=== PATIENT | male | born 1945 | race Caucasian/White ===

== ENCOUNTER 2017-08-01 18:29 | Emergency (ER) | payer MEDICARE, MEDICAID ==
[~2017-08-01] VITALS: Ht 177.8 cm; Wt 99.8 kg
[~2017-08-01 18:29] MED LIST: CAPT25TA3 PO; GLIM2TAB2 PO; HYDR-4076 PO; LORA1TAB PO; MAGN500T3 PO; MECL-102 PO; NIFE30TA91 PO; OLME1TAB22 PO; RIVA20TA PO; TAMS0.4C34 PO
[2017-08-01 19:08] LABS: *BILIRUBIN,URIN NEGATIVE (NEGATIVE); *COLOR,URINE RED (YELLOW); *KETONES,URINE NEGATIVE (NEGATIVE); *PROTEIN,URINE 2+ (NEGATIVE); *UROBILINOGEN,URINE 0.2 E.U./dl (NORMAL); LEUKOCYTE ESTERASE ,URINE NEGATIVE (NEGATIVE); NITRITE, URINE NEGATIVE (NEGATIVE); PH,URINE 6.5 (5.0-8.0); UGLUCOSE NEGATIVE (NEGATIVE)
[2017-08-01 19:15] LABS: *BLOOD, URINE 4+ (NEGATIVE); *CLARITY,URINE BLOODY (CLEAR)
[2017-08-01 19:16] LABS: RBC,URINE TNTC /HPF (0-3)
--- NOTE | 2017-08-01 19:29 | NUR ---
Pt ambulated to room with steady gait. Pt is on Xarelto and c/o hematuria since 1800 but sts it has improved since. Dr. Morton at bedside for MSE
[2017-08-01 19:44] LABS: BASOPHILS % (AUTO) 0.3 % (0.0-2.0); EOSINOPHILS # (AUTO) 0.1 K/uL (0.0-0.7); EOSINOPHILS % (AUTO) 0.9 % (0.0-7.0); HEMATOCRIT 40.8 % (36.7-47.1); HEMOGLOBIN 13.9 g/dL (12.5-16.3); LYMPHOCYTES % (AUTO) 13.7 % (20.5-51.5); MEAN CORPUSCULAR HEMOGLOBIN 30.8 uug (23.8-33.4); MEAN CORPUSCULAR HGB CONC 34 g/dL (32.5-36.3); MEAN CORPUSCULAR VOLUME 90.3 fL (73.0-96.2); MONOCYTES # (AUTO) 0.5 K/uL (2.0-10.0); MONOCYTES % (AUTO) 6.3 % (0.0-11.0); NEUTROPHILS # (AUTO) 5.9 K/uL (1.8-8.9); NEUTROPHILS % (AUTO) 78.8 % (38.5-71.5); PLATELET COUNT (AUTO) 215 K/uL (152-348); RED BLOOD CELL COUNT(AUTO) 4.52 MIL/uL (4.06-5.63); WHITE BLOOD COUNT (AUTO) 7.5 K/uL (3.6-10.2)
[2017-08-01] MEDS ORDERED: LIDOCAINE 2% (UROJET) 10 ML JELLY MM ONE ×2 (19:45→20:20)
[2017-08-01 19:46] LABS: CARBON DIOXIDE 30 mmol/L (21-32); CHLORIDE 103 mmol/L (98-107); CREATININE 1.7 mg/dL (0.6-1.3); GLUCOSE 177 mg/dL (74-106); POTASSIUM 3.7 mmol/L (3.5-5.1); UREA NITROGEN, BLOOD 27 mg/dL (7-18)
[2017-08-01 19:52] LABS: ALANINE AMINOTRANSFERASE 32 U/L (16-63); ALKALINE PHOSPHATASE 57 U/L (50-136); ASPARTATE AMINOTRANSFERASE 20 U/L (15-37); BILIRUBIN,TOTAL 0.5 mg/dL (0.2-1.0)
--- NOTE | 2017-08-01 21:22 | NUR ---
CBI INFUSION WITHOUT ANY NOTED COMPLICATIONS. OUTPUT INCREASINGLY BECOMING CLEARER WITH SCANT CLOTTING NOTED.
--- NOTE | 2017-08-01 22:15 | NUR ---
Patient discharged to home in stable conditon. Written and verbal after care instructions given. Patient verbalizes understanding of instructions.
[2017-08-01 22:50] VITALS: BP 161/83
== END 2017-08-01 22:20 | disposition home or self-care (01) ==
LOC: ER 18:29
DX: R31.0 Gross hematuria (principal); I10 Essential (primary) hypertension; E11.9 Type 2 diabetes mellitus without complications; I48.91 Unspecified atrial fibrillation; E78.5 Hyperlipidemia, unspecified
CPT/HCPCS: 36415; 51702; 85025; 85610; A4217; A4663; J7030

== ENCOUNTER 2022-07-17 11:50 | Inpatient (IN) | payer MEDICARE, OTHER ==
[~2022-07-17] VITALS: Ht 162.6 cm; Wt 104.3 kg
[~2022-07-17 11:50] MED LIST changes: -GLIM2TAB2 PO; +GLIM2TAB31 PO; -HYDR-4076 PO; +HYDR-894 PO; -MECL-102 PO; +MECL-159 PO
[2022-07-17] MEDS ORDERED: VANCOMYCIN IV 1,000 MG in IV DEXTROSE 5% 250 ML IV ONE (12:15)
[2022-07-17] MEDS ORDERED: PIPERACILLIN SODIUM/TAZOBACTAM 3.375 G in IV DEXTROSE 5% 50 ML IV ONE (12:15)
[2022-07-17] MEDS ORDERED: PIPERACILLIN/TAZOBACTAM/D5W 50 ML IV ONE (12:19)
[2022-07-17] MEDS ORDERED: VANCOMYCIN IV 200 ML ONE ×2 (12:19→23:49)
[2022-07-17] MEDS ORDERED: GLIP10TA11 PO (12:24)
[2022-07-17] MEDS ORDERED: APIX2.5T PO (12:24)
[2022-07-17] MEDS ORDERED: NEBI10TA2 PO (12:24)
[2022-07-17] MEDS ORDERED: DAPA5TAB PO (12:24)
[2022-07-17] MEDS ORDERED: MV-M1TAB18 PO (12:24)
[2022-07-17] MEDS ORDERED: DOXA4TAB3 PO (12:24)
[2022-07-17] MEDS ORDERED: CEPH500C2 PO (12:24)
[2022-07-17] MEDS ORDERED: [UNRECOGNIZED DRUG - OTHER] PO (12:24)
--- NOTE | 2022-07-17 12:36 | NUR ---
PT IS IN ROOM #2A. DR CALDERON EVALUATED THE PT.
[2022-07-17 13:17] LABS: CARBON DIOXIDE 30 mmol/L (21-32); CHLORIDE 106 mmol/L (98-107); CREATININE 1.3 mg/dL (0.6-1.3); GLUCOSE 172 mg/dL (74-106); POTASSIUM 4.2 mmol/L (3.5-5.1); UREA NITROGEN, BLOOD 25 mg/dL (7-18)
[2022-07-17 13:22] LABS: ALANINE AMINOTRANSFERASE 59 U/L (16-63); ALKALINE PHOSPHATASE 63 U/L (50-136); ASPARTATE AMINOTRANSFERASE 22 U/L (15-37); BILIRUBIN,DIRECT 0.2 mg/dL (0.0-0.2); BILIRUBIN,TOTAL 0.5 mg/dL (0.2-1.0); TOTAL PROTEIN, SERUM 6.8 g/dL (6.4-8.2)
[2022-07-17 13:31] LABS: HEMATOCRIT 38.1 % (36.7-47.1); MEAN CORPUSCULAR HEMOGLOBIN 32.9 uug (23.8-33.4); MEAN CORPUSCULAR VOLUME 98.2 fL (73.0-96.2); PLATELET COUNT (AUTO) 196 K/uL (152-348)
--- NOTE | 2022-07-17 14:07 | NUR ---
Dr Newman spoke to Dr Perkins for admission.
[2022-07-17] MEDS: glipiZIDE 10 MG TABLET PO SCH (17:00)
[2022-07-17] MEDS ORDERED: DOXAZOSIN 2 MG TABLET ONE (17:20)
[2022-07-17] MEDS ORDERED: hydrALAZINE HCL 50 MG TABLET ONE (17:21)
[2022-07-17] MEDS: DOXAZOSIN 2 MG TABLET PO SCH (17:24)
[2022-07-17] MEDS: hydrALAZINE HCL 50 MG TABLET PO SCH (17:24)
--- NOTE | 2022-07-17 19:34 | NUR ---
Endorsed to Donna RN RM # [id number], will transfer patient now.
[2022-07-17 20:00] VITALS: BP 138/71
[2022-07-17] MEDS ORDERED: TEMAZEPAM 15 MG CAPSULE PO PRN (20:30)
[2022-07-17] MEDS ORDERED: ONDANSETRON 4 MG/2 ML VIAL IV PRN (20:30)
[2022-07-17] MEDS ORDERED: ACETAMINOPHEN 325 MG TABLET PO PRN (20:30)
[2022-07-17] MEDS ORDERED: HYDROCODONE/APAP 5-325MG TABLET PO PRN (20:30)
[2022-07-17] MEDS ORDERED: PIPERACILLIN/TAZOBACTAM/D5W 100 ML IV ONE (20:41)
[2022-07-17] MEDS: PIPERACILLIN SODIUM/TAZOBACTAM 3.375 G in IV DEXTROSE 5% 50 ML IV SCH (21:24)
[2022-07-17] MEDS: APIXABAN 2.5 MG TABLET PO SCH (21:25)
[2022-07-17] MEDS: IV 1/2NS 1000 ML 1,000 ML IV PRN (21:51)
[2022-07-18 04:00] VITALS: BP 125/74
[2022-07-18] MEDS: PIPERACILLIN SODIUM/TAZOBACTAM 3.375 G in IV DEXTROSE 5% 50 ML IV SCH ×4 (05:45→23:20)
[2022-07-18] MEDS: PANTOPRAZOLE SODIUM 40 MG TABLET.DR PO SCH ×2 (06:19→07:00)
[2022-07-18 07:00] LABS: HEMATOCRIT 42.9 % (36.7-47.1); MEAN CORPUSCULAR HEMOGLOBIN 32.6 uug (23.8-33.4); MEAN CORPUSCULAR VOLUME 98.7 fL (73.0-96.2); PLATELET COUNT (AUTO) 225 K/uL (152-348)
[2022-07-18] MEDS ORDERED: VANCOMYCIN IV 1,000 MG in IV DEXTROSE 5% 250 ML IV SCH (07:00)
[2022-07-18 07:26] LABS: THYROID STIMULATING HORMONE 2.108 mIU/mL (0.358-3.740)
[2022-07-18 07:53] LABS: CARBON DIOXIDE 33 mmol/L (21-32); CHLORIDE 102 mmol/L (98-107); CHOLESTEROL 143 mg/dL (<200); CREATININE 1.6 mg/dL (0.6-1.3); GLUCOSE 109 mg/dL (74-106); HDL CHOLESTEROL 45 mg/dL (40-60); MAGNESIUM 2.1 mg/dL (1.8-2.4); PHOSPHOROUS 4.4 mg/dL (2.5-4.9); POTASSIUM 4.1 mmol/L (3.5-5.1); TRIGLYCERIDES 74 MG/DL (30-150); UREA NITROGEN, BLOOD 20 mg/dL (7-18)
[2022-07-18] MEDS: glipiZIDE 10 MG TABLET PO SCH ×2 (10:13→17:34)
[2022-07-18] MEDS: DOXAZOSIN 2 MG TABLET PO SCH ×3 (10:13→17:35)
[2022-07-18] MEDS: hydrALAZINE HCL 50 MG TABLET PO SCH ×2 (10:14→17:00)
[2022-07-18] MEDS: APIXABAN 2.5 MG TABLET PO SCH ×2 (10:20→20:36)
[2022-07-18 11:38] VITALS: BP 134/80
--- NOTE | 2022-07-18 11:59 | NUR ---
WOUND CARE CONSULT: PT PRESENTS WITH OPEN WOUND WITH SURROUNDING ERYTHEMA TO RT LOWER LEG, PRESENT ON ADMISSION. DR BUSH CALLED FOR DPM CONSULT. PT USING HIS OWN MUPIRICIN OINTMENT THAT HE RECEIVED FROM HIS QUARTER FOLDER WITH STERILE BANDAGE. PT IS INDEPENDENT WITH BED MOBILITY AND CONTINENT. MD IN AGREEMENT WITH PLAN OF CARE.
[2022-07-18] MEDS ORDERED: FINE10TA PO (12:55)
[2022-07-18] MEDS ORDERED: AMLO2.5T4 PO (15:43)
[2022-07-18] MEDS ORDERED: OMEP1CAP25 PO (15:43)
[2022-07-18] MEDS ORDERED: EVOL140P3 SQ (15:43)
[2022-07-18] MEDS ORDERED: ALBU8.5H8 INH (15:43)
[2022-07-18] MEDS ORDERED: CHOL400C8 PO (15:43)
[2022-07-18] MEDS ORDERED: MONT10TA33 PO (15:43)
[2022-07-18] MEDS ORDERED: ICOS1CAP PO (15:43)
[2022-07-18] MEDS ORDERED: INSU100I4 SQ (15:43)
[2022-07-18] MEDS ORDERED: LORA-259 PO (15:43)
[2022-07-18] MEDS ORDERED: HYDR-4077 PO (15:43)
[2022-07-18] MEDS ORDERED: SEMA1PEN SQ (15:43)
[2022-07-18] MEDS ORDERED: LATA5DRO EACHEYE (15:43)
[2022-07-18] MEDS ORDERED: SOLI10TA2 PO (15:43)
[2022-07-18] MEDS ORDERED: AZEL137S7 BNOSTRILS (15:45)
[2022-07-18 16:28] VITALS: BP 128/80
[2022-07-18] MEDS: IV 1/2NS 1000 ML 1,000 ML IV PRN (17:34)
[2022-07-18] MEDS: MUPIROCIN 2% OINT 22 GM TUBE TP SCH ×2 (20:34→20:59)
[2022-07-18 21:21] VITALS: BP 126/73
[2022-07-19 00:36] VITALS: BP 145/92
[2022-07-19 05:49] VITALS: BP 145/87
--- NOTE | 2022-07-19 06:00 | NUR ---
PT RESTED WELL IN BETWEEN CARE; NO ACUTE DISTRESS; WOUND CARE DONE PER MD; NEEDS ATTENDED; WILL ENDORSE TO GET ACCUCHECK ORDERS; CONTINUE TO MONITOR; CONTINUE PLAN OF CARE.
[2022-07-19] MEDS: PIPERACILLIN SODIUM/TAZOBACTAM 3.375 G in IV DEXTROSE 5% 50 ML IV SCH ×2 (06:04→13:54)
[2022-07-19] MEDS: PANTOPRAZOLE SODIUM 40 MG TABLET.DR PO SCH (06:04)
[2022-07-19 06:37] LABS: HEMATOCRIT 39.2 % (36.7-47.1); MEAN CORPUSCULAR HEMOGLOBIN 32.4 uug (23.8-33.4); MEAN CORPUSCULAR VOLUME 98.1 fL (73.0-96.2); PLATELET COUNT (AUTO) 211 K/uL (152-348)
[2022-07-19 07:02] LABS: CARBON DIOXIDE 31 mmol/L (21-32); CHLORIDE 105 mmol/L (98-107); CREATININE 1.6 mg/dL (0.6-1.3); GLUCOSE 145 mg/dL (74-106); MAGNESIUM 2.1 mg/dL (1.8-2.4); PHOSPHOROUS 4.2 mg/dL (2.5-4.9); POTASSIUM 3.9 mmol/L (3.5-5.1); UREA NITROGEN, BLOOD 18 mg/dL (7-18)
[2022-07-19] MEDS: glipiZIDE 10 MG TABLET PO SCH ×2 (08:59→17:30)
[2022-07-19] MEDS: APIXABAN 2.5 MG TABLET PO SCH ×2 (08:59→20:31)
[2022-07-19] MEDS: DOXAZOSIN 2 MG TABLET PO SCH ×5 (09:00→17:37)
[2022-07-19] MEDS: hydrALAZINE HCL 50 MG TABLET PO SCH ×3 (09:00→17:00)
[2022-07-19] MEDS ORDERED: MUPIROCIN 2% OINT 22 GM TUBE TP SCH (09:00)
[2022-07-19] MEDS: VANCOMYCIN IV 1,500 MG in IV DEXTROSE 5% 500 ML IV SCH (10:13)
[2022-07-19] MEDS: MUPIROCIN 2% OINT 22 GM TUBE TP SCH ×2 (12:41→20:31)
[2022-07-19 13:00] VITALS: BP 125/68
[2022-07-19] MEDS ORDERED: DEXTROSE 50% 50 ML DISP.SYRIN IV PRN (17:45)
[2022-07-19] MEDS: CEFEPIME HCL 1 G in IV DEXTROSE 5% 50 ML IV SCH (20:30)
[2022-07-19] MEDS: INSULIN REGULAR, HUMAN 300 UNIT/3 ML VIAL SQ PRN (20:43)
[2022-07-19] MEDS: BLOOD SUGAR DIAGNOSTIC 1 EACH STRIP VI SCH (20:43)
[2022-07-19 21:24] VITALS: BP 127/70
[2022-07-20 00:13] VITALS: BP 122/73
[2022-07-20] MEDS: IV 1/2NS 1000 ML 1,000 ML IV PRN (04:14)
[2022-07-20 05:00] VITALS: BP 132/70
[2022-07-20] MEDS: BLOOD SUGAR DIAGNOSTIC 1 EACH STRIP VI SCH ×3 (05:50→16:48)
[2022-07-20] MEDS: PANTOPRAZOLE SODIUM 40 MG TABLET.DR PO SCH (05:50)
[2022-07-20 07:54] LABS: HEMATOCRIT 41.3 % (36.7-47.1); MEAN CORPUSCULAR HEMOGLOBIN 32.5 uug (23.8-33.4); MEAN CORPUSCULAR VOLUME 97.8 fL (73.0-96.2); PLATELET COUNT (AUTO) 227 K/uL (152-348)
[2022-07-20 08:07] LABS: ALANINE AMINOTRANSFERASE 32 U/L (16-63); ALKALINE PHOSPHATASE 58 U/L (50-136); ASPARTATE AMINOTRANSFERASE 11 U/L (15-37); BILIRUBIN,TOTAL 0.5 mg/dL (0.2-1.0); CARBON DIOXIDE 30 mmol/L (21-32); CHLORIDE 104 mmol/L (98-107); CREATINE KINASE, TOTAL 53 U/L (39-308); CREATININE 1.6 mg/dL (0.6-1.3); GLUCOSE 148 mg/dL (74-106); MAGNESIUM 2.2 mg/dL (1.8-2.4); PHOSPHOROUS 3.6 mg/dL (2.5-4.9); POTASSIUM 4.1 mmol/L (3.5-5.1); UREA NITROGEN, BLOOD 19 mg/dL (7-18)
[2022-07-20] MEDS: hydrALAZINE HCL 50 MG TABLET PO SCH ×3 (09:00→17:00)
[2022-07-20] MEDS: APIXABAN 2.5 MG TABLET PO SCH (09:08)
[2022-07-20] MEDS: glipiZIDE 10 MG TABLET PO SCH ×2 (09:11→17:10)
[2022-07-20] MEDS: MUPIROCIN 2% OINT 22 GM TUBE TP SCH (09:13)
[2022-07-20] MEDS: CEFEPIME HCL 1 G in IV DEXTROSE 5% 50 ML IV SCH (09:14)
[2022-07-20 11:43] VITALS: BP 124/78
[2022-07-20] MEDS: DOXAZOSIN 2 MG TABLET PO SCH ×2 (13:17→17:15)
[2022-07-20] MEDS ORDERED: DOXY100T2 PO (15:00)
[2022-07-20] MEDS: VANCOMYCIN IV 1,500 MG in IV DEXTROSE 5% 500 ML IV SCH ×2 (16:00→16:22)
[2022-07-20] MEDS: INSULIN REGULAR, HUMAN 300 UNIT/3 ML VIAL SQ PRN (16:49)
[2022-07-20] MEDS ORDERED: DOXYCYCLINE HYCLATE 100 MG TABLET PO ONE (17:00)
--- NOTE | 2022-07-20 17:00 | NUR ---
Pt. discharged home and picked up with his . Noted to be stable up on the discharge. IV lines removed. Personal belonging returned to the patient.
[2022-07-20 17:15] VITALS: BP 137/75
[2022-07-23 12:07] LABS: A/G RATIO 0.8 (0.7-1.7); ALBUMIN 2.9 g/dL (2.9-4.4); ALPHA-1-GLOBULIN 0.3 g/dL (0.0-0.4); ALPHA-2-GLOBULIN 0.8 g/dL (0.4-1.0); BETA GLOBULIN 0.9 g/dL (0.7-1.3); GAMMA GLOBULIN 1.5 g/dL (0.4-1.8); GLOBULIN, TOTAL 3.5 g/dL (2.2-3.9); M-SPIKE 1.2 g/dL (Not Observed)
== END 2022-07-20 17:30 | disposition home or self-care (01) | DRG 570 ==
LOC: ER 11:50 → TELE3 19:38
PROVIDERS: ADMIT Nurse Practitioner Family; ATTEND Nurse Practitioner Family
PROC: 0JBN0ZZ Excision of Right Lower Leg Subcutaneous Tissue and Fascia, Open Approach (ICD-10-PCS; principal; 2022-07-18)
DX: L03.115 Cellulitis of right lower limb (principal); N17.0 Acute kidney failure with tubular necrosis; E44.1 Mild protein-calorie malnutrition; E66.9 Obesity, unspecified; E78.5 Hyperlipidemia, unspecified; E88.09 Other disorders of plasma-protein metabolism, not elsewhere classified; G89.29 Other chronic pain; I48.91 Unspecified atrial fibrillation; Z79.01 Long term (current) use of anticoagulants; Z79.84 Long term (current) use of oral hypoglycemic drugs; Z20.822 Contact with and (suspected) exposure to COVID-19; Z68.39 Body mass index [BMI] 39.0-39.9, adult; S80.861A Insect bite (nonvenomous), right lower leg, initial encounter; W57.XXXA Bitten or stung by nonvenomous insect and other nonvenomous arthropods, initial encounter; Y93.9 Activity, unspecified; Y92.009 Unspecified place in unspecified non-institutional (private) residence as the place of occurrence of the external cause; I12.9 Hypertensive chronic kidney disease with stage 1 through stage 4 chronic kidney disease, or unspecified chronic kidney disease; N18.9 Chronic kidney disease, unspecified; E11.22 Type 2 diabetes mellitus with diabetic chronic kidney disease
CPT/HCPCS: 36415; 71045; 73590; 83605; 83735; 83970; 84100; 84155; 84165; 84443; 84484; 85025; 85730; 87040; 93005; A4663; G0378; J0692; J1815; J2543; J3370; J7050; J7060

== ENCOUNTER 2024-11-04 08:15 | Inpatient (IN) | payer MEDICARE, OTHER ==
[~2024-11-04] VITALS: Ht 167.6 cm; Wt 118.4 kg
[~2024-11-04 08:15] MED LIST changes: +ALBU8.5H8 INH; +AMLO2.5T4 PO; +APIX2.5T PO; +AZEL137S7 BNOSTRILS; -CAPT25TA3 PO; +CEPH500C2 PO; +CHOL400C8 PO; +DAPA5TAB PO; +DOXA4TAB3 PO; +DOXY100T2 PO; +EVOL140P3 SQ; +FINE10TA PO; -GLIM2TAB31 PO; +GLIP10TA11 PO; +HYDR-4077 PO; -HYDR-894 PO; +ICOS1CAP PO; +INSU100I4 SQ; +LATA5DRO EACHEYE; +LORA-259 PO; -LORA1TAB PO; -MAGN500T3 PO; -MECL-159 PO; +MONT10TA33 PO; +NEBI10TA2 PO; -NIFE30TA91 PO; -OLME1TAB22 PO; +OMEP1CAP25 PO; -RIVA20TA PO; +SEMA1PEN SQ; +SOLI10TA2 PO; -TAMS0.4C34 PO
[2024-11-04 09:12] LABS: BASOPHILS % (AUTO) 0.5 % (0.0-2.0); EOSINOPHILS # (AUTO) 0.1 K/uL (0.0-0.7); EOSINOPHILS % (AUTO) 2.5 % (0.0-7.0); HEMATOCRIT 33.5 % (36.7-47.1); LYMPHOCYTES # (AUTO) 1.1 K/uL (0.8-4.8); LYMPHOCYTES % (AUTO) 21.2 % (20.5-51.5); MEAN CORPUSCULAR HEMOGLOBIN 30.3 uug (23.8-33.4); MEAN CORPUSCULAR HGB CONC 33 g/dL (32.5-36.3); MEAN CORPUSCULAR VOLUME 92.6 fL (73.0-96.2); MONOCYTES # (AUTO) 0.5 K/uL (0.1-1.30); MONOCYTES % (AUTO) 8.8 % (0.0-11.0); NEUTROPHILS # (AUTO) 3.4 K/uL (1.8-8.9); PLATELET COUNT (AUTO) 207 K/uL (152-348); RED BLOOD CELL COUNT(AUTO) 3.62 MIL/uL (4.06-5.63); RED CELL DISTRIBUTION WIDTH 20.3 % (12.1-16.2); WHITE BLOOD COUNT (AUTO) 5.1 K/uL (3.6-10.2)
[2024-11-04 09:13] LABS: DIFFERENTIAL COMMENT 1
[2024-11-04 09:18] LABS: CALCIUM 9.1 mg/dL (8.5-10.1); CARBON DIOXIDE 31 mmol/L (21-32); CHLORIDE 111 mmol/L (98-107); CREATININE 1.7 mg/dL (0.6-1.3); GLUCOSE 215 mg/dL (74-106); POTASSIUM 3.9 mmol/L (3.5-5.1); SODIUM SERUM 148 mmol/L (136-145); UREA NITROGEN, BLOOD 47 mg/dL (7-18)
[2024-11-04 09:21] LABS: *BILIRUBIN,URIN NEGATIVE (NEGATIVE); *BLOOD, URINE NEGATIVE (NEGATIVE); *CLARITY,URINE CLEAR (CLEAR); *COLOR,URINE YELLOW (YELLOW); *KETONES,URINE TRACE (NEGATIVE); *PROTEIN,URINE 1+ (NEGATIVE); *UROBILINOGEN,URINE 0.2 E.U./dl (NORMAL); LEUKOCYTE ESTERASE ,URINE NEGATIVE (NEGATIVE); NITRITE, URINE NEGATIVE (NEGATIVE); PH,URINE 5.5 (5.0-8.0); UGLUCOSE 1+ (NEGATIVE)
[2024-11-04 09:28] LABS: LACTIC ACID 2.4 mmol/L (0.4-2.0)
[2024-11-04 09:30] LABS: WBC,URINE 0-3 /HPF (0-3)
[2024-11-04 09:31] LABS: ALANINE AMINOTRANSFERASE 25 U/L (16-63); ALBUMIN 2.9 g/dL (3.4-5.0); ALKALINE PHOSPHATASE 48 U/L (50-136); ASPARTATE AMINOTRANSFERASE 15 U/L (15-37); BILIRUBIN,DIRECT 0.2 mg/dL (0.0-0.2); BILIRUBIN,TOTAL 0.4 mg/dL (0.2-1.0); NT-PRO BNP 2338 pg/mL (0-125); TOTAL PROTEIN, SERUM 6.5 g/dL (6.4-8.2)
[2024-11-04 10:08] LABS: ABG BASE EXCESS 0.2 mmol/L (-2.0-3.0); ABG HCO3 26.4 mmol/L (21.0-28.0); ABG PH 7.341 (7.350-7.450); ABG PO2 97.8 mmHg (83.0-108.0); ABG SITE RIGHT RADIAL; ABG TOTAL HEMOGLOBIN 11.5 G/dL (13.5-17.5); COHb 0.7 % (0.5-1.5); MetHb 0.3 % (0.0-1.5); O2Hb 94.6 % (94.0-98.0)
[2024-11-04] MEDS ORDERED: FUROSEMIDE 40 MG/4 ML VIAL ONE (11:46)
[2024-11-04] MEDS: FUROSEMIDE 40 MG/4 ML VIAL IV ONE (11:51)
[2024-11-04] MEDS ORDERED: ONDANSETRON 4 MG/2 ML VIAL IV PRN (12:45)
[2024-11-04] MEDS ORDERED: LORAZEPAM 2 MG/1 ML VIAL IV PRN (12:45)
[2024-11-04] MEDS ORDERED: ACETAMINOPHEN 325 MG TABLET PO PRN (12:45)
[2024-11-04] MEDS ORDERED: DEXTROSE 50% 50 ML DISP.SYRIN IV PRN (12:45)
[2024-11-04] MEDS ORDERED: INSULIN REGULAR, HUMAN 1000 UNIT/10 ML VIAL ONE (12:57)
[2024-11-04] MEDS: INSULIN REGULAR, HUMAN 1000 UNIT/10 ML VIAL SQ ONE (13:00)
[2024-11-04] MEDS ORDERED: GLIM4TAB37 PO (13:29)
[2024-11-04] MEDS ORDERED: DAPA10TA PO (13:30)
[2024-11-04] MEDS: levETIRAcetam IV 1,000 MG in IV DEXTROSE 5% 100 ML IV SCH (13:31)
[2024-11-04] MEDS ORDERED: ROPI2TAB26 PO (15:35)
[2024-11-04] MEDS ORDERED: GABA300C PO (15:36)
[2024-11-04] MEDS ORDERED: POTA10CA43 PO (15:36)
[2024-11-04] MEDS ORDERED: FINA5TAB3 PO (15:37)
[2024-11-04] MEDS ORDERED: FURO20TA4 PO (15:38)
[2024-11-04] MEDS ORDERED: MEMA14CA PO (15:39)
[2024-11-04] MEDS ORDERED: LEVE750T4 PO (15:41)
[2024-11-04] MEDS ORDERED: CLON2TAB PO (15:42)
[2024-11-04] MEDS ORDERED: CHOL500062 PO (15:45)
[2024-11-04] MEDS ORDERED: ALBUTEROL SULFATE 2.5 MG/3 ML NEBU NEB PRN (17:00)
[2024-11-04] MEDS: BLOOD SUGAR DIAGNOSTIC 1 EACH STRIP VI SCH (17:04)
[2024-11-04] MEDS: MEMANTINE HCL 5 MG TABLET PO SCH (17:15)
[2024-11-04] MEDS: DOXAZOSIN 2 MG TABLET PO SCH (17:15)
[2024-11-04] MEDS: GABAPENTIN 300 MG CAPSULE PO SCH (17:15)
[2024-11-04] MEDS: APIXABAN 2.5 MG TABLET PO SCH (17:16)
[2024-11-04 19:00] VITALS: BP 131/73; TEMP 97.6; O2SAT 99
[2024-11-04] MEDS: METOPROLOL TARTRATE 50 MG TABLET PO SCH (21:13)
[2024-11-04] MEDS: INSULIN REGULAR, HUMAN 1000 UNIT/10 ML VIAL SQ PRN (21:14)
[2024-11-05] VITALS (9 sets, daily range): BP systolic 97–133; BP diastolic 52–74; TEMP 97.5–98.5; O2SAT 94–99
[2024-11-05 06:40] LABS: BASOPHILS % (AUTO) 0.5 % (0.0-2.0); EOSINOPHILS # (AUTO) 0.1 K/uL (0.0-0.7); EOSINOPHILS % (AUTO) 2.8 % (0.0-7.0); HEMATOCRIT 34.1 % (36.7-47.1); HEMOGLOBIN 11.2 g/dL (12.5-16.3); LYMPHOCYTES # (AUTO) 1.2 K/uL (0.8-4.8); LYMPHOCYTES % (AUTO) 23.1 % (20.5-51.5); MEAN CORPUSCULAR HEMOGLOBIN 30.2 uug (23.8-33.4); MEAN CORPUSCULAR HGB CONC 33 g/dL (32.5-36.3); MONOCYTES # (AUTO) 0.4 K/uL (0.1-1.30); MONOCYTES % (AUTO) 7.2 % (0.0-11.0); NEUTROPHILS # (AUTO) 3.5 K/uL (1.8-8.9); NEUTROPHILS % (AUTO) 66.4 % (38.5-71.5); PLATELET COUNT (AUTO) 219 K/uL (152-348); RED BLOOD CELL COUNT(AUTO) 3.71 MIL/uL (4.06-5.63); WHITE BLOOD COUNT (AUTO) 5.3 K/uL (3.6-10.2)
[2024-11-05] MEDS: PANTOPRAZOLE SODIUM 40 MG TABLET.DR PO SCH (06:41)
[2024-11-05 06:59] LABS: DIFFERENTIAL COMMENT 1
[2024-11-05 07:13] LABS: THYROID STIMULATING HORMONE 1.993 mIU/mL (0.358-3.740)
[2024-11-05 07:25] LABS: CALCIUM 9.1 mg/dL (8.5-10.1); CARBON DIOXIDE 33 mmol/L (21-32); CHLORIDE 111 mmol/L (98-107); CREATININE 1.5 mg/dL (0.6-1.3); GLUCOSE 95 mg/dL (74-106); MAGNESIUM 2.1 mg/dL (1.8-2.4); PHOSPHOROUS 4.3 mg/dL (2.5-4.9); POTASSIUM 3.8 mmol/L (3.5-5.1); SODIUM SERUM 149 mmol/L (136-145); UREA NITROGEN, BLOOD 37 mg/dL (7-18)
[2024-11-05] MEDS: CHOLECALCIFEROL 1,000 UNIT TABLET PO SCH (08:37)
[2024-11-05] MEDS: ropiniROLE 1 MG TABLET PO SCH (08:37)
[2024-11-05] MEDS: FINASTERIDE 5 MG TABLET PO SCH (08:38)
[2024-11-05] MEDS ORDERED: Medication Not On Formulary EA (Memantine HCl (Namenda Xr) 14 MG) PO SCH (09:00)
[2024-11-05] MEDS ORDERED: Medication Not On Formulary EA (Cholecalciferol (Vitamin D3) (Vitamin D3) 1 TAB) PO SCH (09:00)
[2024-11-05] MEDS ORDERED: FINERENONE 10 MG PO SCH (09:00)
[2024-11-05] MEDS: ACETAzolamide SODIUM 500 MG VIAL IV ONE (10:57)
[2024-11-05] MEDS: MIRALAX 17 GM POWD.PACK PO SCH (12:48)
[2024-11-05] MEDS: SENNOSIDES 1 TABLET PO SCH (20:13)
[2024-11-05] MEDS: TRAZODONE 50 MG TABLET PO SCH (20:14)
[2024-11-05] MEDS: FUROSEMIDE 40 MG/4 ML VIAL IV SCH (20:14)
[2024-11-05 20:43] LABS: FERRITIN < 1 ng/mL (26-388)
[2024-11-05 20:49] LABS: CHOLESTEROL < 50 mg/dL (<200); TRIGLYCERIDES < 15 MG/DL (30-150)
[2024-11-05 20:50] LABS: HDL CHOLESTEROL 9 mg/dL (40-60)
[2024-11-05 22:18] LABS: IRON, SERUM 76 ug/dL (50-175)
[2024-11-06] VITALS (9 sets, daily range): BP systolic 99–129; BP diastolic 55–72; TEMP 97.8–98.4; O2SAT 1–98
[2024-11-06 07:04] LABS: BASOPHILS % (AUTO) 0.5 % (0.0-2.0); EOSINOPHILS # (AUTO) 0.1 K/uL (0.0-0.7); EOSINOPHILS % (AUTO) 2.5 % (0.0-7.0); HEMATOCRIT 33.5 % (36.7-47.1); HEMOGLOBIN 10.9 g/dL (12.5-16.3); LYMPHOCYTES # (AUTO) 1.4 K/uL (0.8-4.8); LYMPHOCYTES % (AUTO) 27.1 % (20.5-51.5); MEAN CORPUSCULAR HEMOGLOBIN 29.8 uug (23.8-33.4); MEAN CORPUSCULAR HGB CONC 32 g/dL (32.5-36.3); MEAN CORPUSCULAR VOLUME 91.8 fL (73.0-96.2); MONOCYTES # (AUTO) 0.4 K/uL (0.1-1.30); MONOCYTES % (AUTO) 8.3 % (0.0-11.0); NEUTROPHILS # (AUTO) 3.2 K/uL (1.8-8.9); NEUTROPHILS % (AUTO) 61.6 % (38.5-71.5); PLATELET COUNT (AUTO) 215 K/uL (152-348); RED BLOOD CELL COUNT(AUTO) 3.65 MIL/uL (4.06-5.63); RED CELL DISTRIBUTION WIDTH 19.7 % (12.1-16.2); WHITE BLOOD COUNT (AUTO) 5.2 K/uL (3.6-10.2)
[2024-11-06 07:18] LABS: CALCIUM 8.8 mg/dL (8.5-10.1); CARBON DIOXIDE 34 mmol/L (21-32); CHLORIDE 105 mmol/L (98-107); CREATININE 1.5 mg/dL (0.6-1.3); GLUCOSE 129 mg/dL (74-106); PHOSPHOROUS 4.5 mg/dL (2.5-4.9); POTASSIUM 3.5 mmol/L (3.5-5.1); SODIUM SERUM 144 mmol/L (136-145); UREA NITROGEN, BLOOD 31 mg/dL (7-18)
[2024-11-06 07:20] LABS: DIFFERENTIAL COMMENT 1
[2024-11-06] MEDS: POTASSIUM CHLORIDE 20 MEQ POWDER PACKET GT ONE (15:04)
[2024-11-06] MEDS: LACTULOSE 20 G/30 ML LIQUID UDC PO PRN (15:04)
[2024-11-06] MEDS: REMEDY ESSENTIAL ZINC PASTE 113 GM TP PRN (15:44)
[2024-11-06 16:08] LABS: *URINE TOTAL PROTEIN RANDOM 14.3 mg/dL (<150/24HR)
[2024-11-06] MEDS: levETIRAcetam 500 MG TABLET PO SCH (20:55)
[2024-11-06 21:04] LABS: *CREATININE,URINE 55.9 mg/dL (30-125)
[2024-11-07 00:10] VITALS: BP 133/80; TEMP 98; O2SAT 95
[2024-11-07 04:50] VITALS: O2SAT 97
[2024-11-07 06:00] VITALS: BP 147/81; TEMP 97.6; O2SAT 95
[2024-11-07 07:31] LABS: BASOPHILS % (AUTO) 0.4 % (0.0-2.0); EOSINOPHILS # (AUTO) 0.2 K/uL (0.0-0.7); EOSINOPHILS % (AUTO) 3.8 % (0.0-7.0); HEMATOCRIT 33.9 % (36.7-47.1); HEMOGLOBIN 11.1 g/dL (12.5-16.3); LYMPHOCYTES # (AUTO) 1.5 K/uL (0.8-4.8); LYMPHOCYTES % (AUTO) 31.5 % (20.5-51.5); MEAN CORPUSCULAR HGB CONC 33 g/dL (32.5-36.3); MEAN CORPUSCULAR VOLUME 91.8 fL (73.0-96.2); MONOCYTES # (AUTO) 0.4 K/uL (0.1-1.30); MONOCYTES % (AUTO) 8.3 % (0.0-11.0); NEUTROPHILS # (AUTO) 2.7 K/uL (1.8-8.9); PLATELET COUNT (AUTO) 211 K/uL (152-348); RED BLOOD CELL COUNT(AUTO) 3.69 MIL/uL (4.06-5.63); RED CELL DISTRIBUTION WIDTH 19.2 % (12.1-16.2); WHITE BLOOD COUNT (AUTO) 4.9 K/uL (3.6-10.2)
[2024-11-07 07:41] VITALS: BP 117/64; TEMP 98.4; O2SAT 92
[2024-11-07 07:53] LABS: DIFFERENTIAL COMMENT 1
[2024-11-07 07:59] LABS: CARBON DIOXIDE 35 mmol/L (21-32); CHLORIDE 105 mmol/L (98-107); CREATININE 1.5 mg/dL (0.6-1.3); GLUCOSE 116 mg/dL (74-106); MAGNESIUM 2.2 mg/dL (1.8-2.4); PHOSPHOROUS 3.6 mg/dL (2.5-4.9); POTASSIUM 3.5 mmol/L (3.5-5.1); SODIUM SERUM 142 mmol/L (136-145); UREA NITROGEN, BLOOD 27 mg/dL (7-18)
[2024-11-07] MEDS: BUMETANIDE 1 MG TABLET PO SCH (09:40)
[2024-11-07 09:41] VITALS: BP 126/70
[2024-11-07] MEDS: POTASSIUM CHLORIDE 20 MEQ POWDER PACKET PO ONE (09:57)
[2024-11-07] MEDS ORDERED: TRAZ-182 PO (10:44)
[2024-11-07] MEDS ORDERED: PREG50CA PO (10:44)
[2024-11-07] MEDS ORDERED: BUME2TAB7 PO (10:44)
== END 2024-11-07 16:40 | disposition home health service (06) | DRG 291 ==
LOC: ER 08:15 → TELE3 12:23 → MEDSURG3 11-07 10:32
PROVIDERS: ADMIT Nurse Practitioner Family; ATTEND Nurse Practitioner Family
PROC: 05HB33Z Insertion of Infusion Device into Right Basilic Vein, Percutaneous Approach (ICD-10-PCS; principal; 2024-11-04)
DX: I13.0 Hypertensive heart and chronic kidney disease with heart failure and stage 1 through stage 4 chronic kidney disease, or unspecified chronic kidney disease (principal); G93.41 Metabolic encephalopathy; I50.33 Acute on chronic diastolic (congestive) heart failure; J96.21 Acute and chronic respiratory failure with hypoxia; J96.22 Acute and chronic respiratory failure with hypercapnia; N17.9 Acute kidney failure, unspecified; Z68.41 Body mass index [BMI] 40.0-44.9, adult; J98.11 Atelectasis; I48.20 Chronic atrial fibrillation, unspecified; E87.4 Mixed disorder of acid-base balance; E87.0 Hyperosmolality and hypernatremia; E11.65 Type 2 diabetes mellitus with hyperglycemia; E11.22 Type 2 diabetes mellitus with diabetic chronic kidney disease; N18.32 Chronic kidney disease, stage 3b; Z79.4 Long term (current) use of insulin; E66.01 Morbid (severe) obesity due to excess calories; G47.33 Obstructive sleep apnea (adult) (pediatric); Z79.01 Long term (current) use of anticoagulants; Z79.84 Long term (current) use of oral hypoglycemic drugs; Z79.899 Other long term (current) drug therapy; Z90.49 Acquired absence of other specified parts of digestive tract; Z95.810 Presence of automatic (implantable) cardiac defibrillator; E78.5 Hyperlipidemia, unspecified; Z99.81 Dependence on supplemental oxygen; M89.8X9 Other specified disorders of bone, unspecified site; I25.10 Atherosclerotic heart disease of native coronary artery without angina pectoris; F03.90 Unspecified dementia, unspecified severity, without behavioral disturbance, psychotic disturbance, mood disturbance, and anxiety; D64.9 Anemia, unspecified; I27.20 Pulmonary hypertension, unspecified; I08.0 Rheumatic disorders of both mitral and aortic valves; R56.9 Unspecified convulsions
CPT/HCPCS: 36415; 36600; 70450; 71045; 76604; 76770; 82803; 83550; 83605; 83735; 83921; 84100; 84300; 84443; 84484; 85025; 85730; 87040; 94660; A4606; A4663; C1758; G0378; J1120; J1815; J1938; J1953; J7060

== ENCOUNTER 2024-12-23 03:08 | Inpatient (IN) | payer MEDICARE, OTHER ==
[2024-12-23] VITALS (10 sets, daily range): BP systolic 115–137; BP diastolic 56–79; TEMP 98–101.2; O2SAT 96–98
[~2024-12-23] VITALS: Ht 172.7 cm; Wt 103.5 kg
[~2024-12-23 03:08] MED LIST changes: -ALBU8.5H8 INH; -AMLO2.5T4 PO; -AZEL137S7 BNOSTRILS; +BUME2TAB7 PO; -CEPH500C2 PO; -CHOL400C8 PO; +CHOL500062 PO; -DAPA5TAB PO; -DOXY100T2 PO; -EVOL140P3 SQ; +FINA5TAB3 PO; +GABA300C PO; +GLIM4TAB37 PO; -GLIP10TA11 PO; -ICOS1CAP PO; -INSU100I4 SQ; -LATA5DRO EACHEYE; +LEVE750T4 PO; -LORA-259 PO; +MEMA14CA PO; -MONT10TA33 PO; +POTA10CA43 PO; +PREG50CA PO; +ROPI2TAB26 PO; -SEMA1PEN SQ; -SOLI10TA2 PO; +TRAZ-182 PO
[2024-12-23 03:54] LABS: BASOPHILS % (AUTO) 0.5 % (0.0-2.0); EOSINOPHILS # (AUTO) 0.1 K/uL (0.0-0.7); EOSINOPHILS % (AUTO) 0.9 % (0.0-7.0); HEMATOCRIT 35.9 % (36.7-47.1); HEMOGLOBIN 11.8 g/dL (12.5-16.3); LYMPHOCYTES # (AUTO) 1.6 K/uL (0.8-4.8); LYMPHOCYTES % (AUTO) 21.3 % (20.5-51.5); MEAN CORPUSCULAR HEMOGLOBIN 29.9 uug (23.8-33.4); MEAN CORPUSCULAR HGB CONC 33 g/dL (32.5-36.3); MEAN CORPUSCULAR VOLUME 91.1 fL (73.0-96.2); MONOCYTES # (AUTO) 0.6 K/uL (0.1-1.30); MONOCYTES % (AUTO) 8.1 % (0.0-11.0); NEUTROPHILS # (AUTO) 5.2 K/uL (1.8-8.9); NEUTROPHILS % (AUTO) 69.2 % (38.5-71.5); PLATELET COUNT (AUTO) 203 K/uL (152-348); RED BLOOD CELL COUNT(AUTO) 3.93 MIL/uL (4.06-5.63); RED CELL DISTRIBUTION WIDTH 15.8 % (12.1-16.2); WHITE BLOOD COUNT (AUTO) 7.5 K/uL (3.6-10.2)
[2024-12-23 03:56] LABS: DIFFERENTIAL COMMENT 1
[2024-12-23 04:02] LABS: CARBON DIOXIDE 33 mmol/L (21-32); CHLORIDE 103 mmol/L (98-107); CREATININE 1.9 mg/dL (0.6-1.3); GLUCOSE 148 mg/dL (74-106); POTASSIUM 4.5 mmol/L (3.5-5.1); SODIUM SERUM 140 mmol/L (136-145); UREA NITROGEN, BLOOD 32 mg/dL (7-18)
[2024-12-23 04:04] LABS: ABG BASE EXCESS 5.6 mmol/L (-2.0-3.0); ABG HCO3 31.2 mmol/L (21.0-28.0); ABG PCO2 50.1 mmHg (35.0-48.0); ABG PH 7.412 (7.350-7.450); ABG PO2 89.5 mmHg (83.0-108.0); ABG SITE RIGHT RADIAL; AaDO2 96.8 mmHg; COHb 0.8 % (0.5-1.5); MetHb 0.3 % (0.0-1.5); O2Hb 94.3 % (94.0-98.0)
[2024-12-23] MEDS ORDERED: SEMA1PEN SQ (04:08)
[2024-12-23] MEDS ORDERED: NORCO 5/325 PO (04:08)
[2024-12-23] MEDS ORDERED: BUME2TAB7 PO (04:08)
[2024-12-23] MEDS ORDERED: DAPA10TA PO (04:08)
[2024-12-23] MEDS ORDERED: EVOL140P3 SQ (04:08)
[2024-12-23] MEDS ORDERED: ALBU18HF2 IH (04:08)
[2024-12-23] MEDS ORDERED: ROPI2TAB7 PO (04:08)
[2024-12-23] MEDS ORDERED: CLON2TAB11 PO (04:08)
[2024-12-23] MEDS ORDERED: TRAZ-182 PO (04:08)
[2024-12-23] MEDS ORDERED: CLOT15CR5 TP (04:08)
[2024-12-23] MEDS ORDERED: ALBUTEROL SULFATE 2.5 MG/3 ML NEBU ONE (04:11)
[2024-12-23] MEDS ORDERED: IPRATROPIUM BROMIDE 0.5 MG/2.5 ML NEBU ONE (04:12)
[2024-12-23 04:14] LABS: ALANINE AMINOTRANSFERASE 27 U/L (16-63); ALBUMIN 3.1 g/dL (3.4-5.0); ALKALINE PHOSPHATASE 59 U/L (50-136); ASPARTATE AMINOTRANSFERASE 20 U/L (15-37); BILIRUBIN,DIRECT 0.2 mg/dL (0.0-0.2); BILIRUBIN,TOTAL 0.5 mg/dL (0.2-1.0); NT-PRO BNP 2560 pg/mL (0-125)
[2024-12-23] MEDS: ALBUTEROL SULFATE 2.5 MG/3 ML NEBU NEB ONE (04:44)
[2024-12-23] MEDS: IPRATROPIUM BROMIDE 0.5 MG/2.5 ML NEBU NEB ONE (04:44)
[2024-12-23] MEDS ORDERED: ALBUTEROL SULFATE 2.5 MG/ 0.5 ML NEBU NEB PRN (05:00)
[2024-12-23] MEDS ORDERED: ONDANSETRON 4 MG/2 ML VIAL IV PRN (05:00)
[2024-12-23] MEDS ORDERED: MAGNESIUM HYDROXIDE 30 ML LIQUID UDC PO PRN (05:00)
[2024-12-23] MEDS ORDERED: IPRATROPIUM BROMIDE 0.5 MG/2.5 ML NEBU NEB PRN (05:00)
[2024-12-23] MEDS: FUROSEMIDE 40 MG/4 ML VIAL IV SCH (09:07)
[2024-12-23] MEDS: PANTOPRAZOLE SODIUM 40 MG TABLET.DR PO SCH (09:08)
[2024-12-23] MEDS: ENOXAPARIN SODIUM 40 MG/0.4 ML DISP.SYRIN SQ SCH (09:09)
[2024-12-23] MEDS ORDERED: DEXTROSE 50% 50 ML DISP.SYRIN IV PRN (10:45)
[2024-12-23] MEDS: BLOOD SUGAR DIAGNOSTIC 1 EACH STRIP VI SCH ×2 (12:02→21:03)
[2024-12-23] MEDS: ACETAMINOPHEN 325 MG TABLET PO PRN (13:13)
[2024-12-23] MEDS: MEDIHONEY= THERAHONEY 1.5 OZ TUBE TOP SCH (15:42)
[2024-12-23] MEDS ORDERED: INSU100V11 SQ (16:41)
[2024-12-23] MEDS: INSULIN REGULAR, HUMAN 1000 UNIT/10 ML VIAL SQ PRN (16:42)
[2024-12-23] MEDS ORDERED: OLOP30.53 BNOSTRILS (16:43)
[2024-12-23] MEDS ORDERED: FLUT1BLS6 INH (16:44)
[2024-12-23] MEDS: GABAPENTIN 300 MG CAPSULE PO SCH (16:45)
[2024-12-23] MEDS: POTASSIUM CHLORIDE 10 MEQ TAB.PRT.SR PO SCH (16:45)
[2024-12-23] MEDS ORDERED: GABA300C PO (16:47)
[2024-12-23] MEDS ORDERED: HYDR-3972 PO (16:48)
[2024-12-23] MEDS ORDERED: CHOL10005 PO (16:49)
[2024-12-23] MEDS: MEMANTINE HCL 5 MG TABLET PO SCH (17:45)
[2024-12-23] MEDS ORDERED: hydrALAZINE HCL 50 MG TABLET PO PRN (18:04)
[2024-12-23] MEDS: APIXABAN 2.5 MG TABLET PO SCH (18:20)
[2024-12-23] MEDS ORDERED: DOXAZOSIN 2 MG TABLET PO SCH (21:00)
[2024-12-23] MEDS: levETIRAcetam 500 MG TABLET PO SCH (21:03)
[2024-12-23] MEDS: METOPROLOL TARTRATE 50 MG TABLET PO SCH (21:05)
[2024-12-23] MEDS: ropiniROLE 1 MG TABLET PO SCH (21:05)
[2024-12-23] MEDS ORDERED: CEFEPIME HCL 1 G VIAL ONE (21:48)
[2024-12-23] MEDS: CEFEPIME HCL 1 G in IV DEXTROSE 5% 50 ML IV SCH (22:08)
[2024-12-24] VITALS (7 sets, daily range): BP systolic 117–144; BP diastolic 59–74; TEMP 97.8–102.8; O2SAT 96–98
[2024-12-24] MEDS: ALBUTEROL SULFATE 2.5 MG/3 ML NEBU NEB PRN (02:59)
[2024-12-24] MEDS: IPRATROPIUM BROMIDE 0.5 MG/2.5 ML NEBU NEB PRN (02:59)
[2024-12-24 07:00] LABS: CALCIUM 8.5 mg/dL (8.5-10.1); CARBON DIOXIDE 33 mmol/L (21-32); CHLORIDE 102 mmol/L (98-107); CREATININE 1.7 mg/dL (0.6-1.3); GLUCOSE 139 mg/dL (74-106); MAGNESIUM 2.6 mg/dL (1.8-2.4); POTASSIUM 4.7 mmol/L (3.5-5.1); SODIUM SERUM 139 mmol/L (136-145); UREA NITROGEN, BLOOD 34 mg/dL (7-18)
[2024-12-24 07:08] LABS: AMMONIA < 10 umol/L (11-32)
[2024-12-24 07:16] LABS: BASOPHILS % (AUTO) 0.2 % (0.0-2.0); EOSINOPHILS % (AUTO) 0.6 % (0.0-7.0); HEMATOCRIT 35.7 % (36.7-47.1); HEMOGLOBIN 11.6 g/dL (12.5-16.3); LYMPHOCYTES # (AUTO) 1.7 K/uL (0.8-4.8); LYMPHOCYTES % (AUTO) 20.4 % (20.5-51.5); MEAN CORPUSCULAR HEMOGLOBIN 29.8 uug (23.8-33.4); MEAN CORPUSCULAR HGB CONC 33 g/dL (32.5-36.3); MEAN CORPUSCULAR VOLUME 91.5 fL (73.0-96.2); MONOCYTES # (AUTO) 0.6 K/uL (0.1-1.30); NEUTROPHILS # (AUTO) 5.8 K/uL (1.8-8.9); NEUTROPHILS % (AUTO) 71.8 % (38.5-71.5); PLATELET COUNT (AUTO) 184 K/uL (152-348); RED BLOOD CELL COUNT(AUTO) 3.91 MIL/uL (4.06-5.63); RED CELL DISTRIBUTION WIDTH 15.7 % (12.1-16.2); WHITE BLOOD COUNT (AUTO) 8.1 K/uL (3.6-10.2)
[2024-12-24 07:20] LABS: DIFFERENTIAL COMMENT 1
[2024-12-24 07:42] LABS: THYROID STIMULATING HORMONE 0.534 mIU/mL (0.358-3.740)
[2024-12-24] MEDS: FINASTERIDE 5 MG TABLET PO SCH (08:50)
[2024-12-24] MEDS: CHOLECALCIFEROL 1,000 UNIT TABLET PO SCH (08:51)
[2024-12-24] MEDS ORDERED: CLOTRIMAZOLE/BETAMET DIPROP CREAM 15 GM TUBE TP SCH (09:00)
[2024-12-24] MEDS: DAPAGLIFLOZIN PROPANEDIOL 10 MG TABLET PO SCH (10:38)
[2024-12-25] VITALS (10 sets, daily range): BP systolic 126–152; BP diastolic 71–98; TEMP 98.5–100.4; O2SAT 93–99
[2024-12-25 04:18] LABS: *BILIRUBIN,URIN NEGATIVE (NEGATIVE); *BLOOD, URINE NEGATIVE (NEGATIVE); *CLARITY,URINE CLEAR (CLEAR); *COLOR,URINE YELLOW (YELLOW); *KETONES,URINE NEGATIVE (NEGATIVE); *PROTEIN,URINE NEGATIVE (NEGATIVE); *UROBILINOGEN,URINE 0.2 E.U./dl (NORMAL); LEUKOCYTE ESTERASE ,URINE NEGATIVE (NEGATIVE); NITRITE, URINE NEGATIVE (NEGATIVE); PH,URINE 5.5 (5.0-8.0); UGLUCOSE 2+ (NEGATIVE)
[2024-12-25 04:32] LABS: *CREATININE,URINE 76.9 mg/dL (30-125); *URINE TOTAL PROTEIN RANDOM 16.5 mg/dL (<150/24HR)
[2024-12-25 07:00] LABS: BASOPHILS % (AUTO) 0.2 % (0.0-2.0); EOSINOPHILS # (AUTO) 0.1 K/uL (0.0-0.7); HEMATOCRIT 36.5 % (36.7-47.1); HEMOGLOBIN 12.1 g/dL (12.5-16.3); LYMPHOCYTES # (AUTO) 1.4 K/uL (0.8-4.8); LYMPHOCYTES % (AUTO) 18.2 % (20.5-51.5); MEAN CORPUSCULAR HEMOGLOBIN 30.2 uug (23.8-33.4); MEAN CORPUSCULAR HGB CONC 33 g/dL (32.5-36.3); MEAN CORPUSCULAR VOLUME 91.4 fL (73.0-96.2); MONOCYTES # (AUTO) 0.6 K/uL (0.1-1.30); MONOCYTES % (AUTO) 7.9 % (0.0-11.0); NEUTROPHILS # (AUTO) 5.7 K/uL (1.8-8.9); NEUTROPHILS % (AUTO) 72.7 % (38.5-71.5); PLATELET COUNT (AUTO) 180 K/uL (152-348); RED BLOOD CELL COUNT(AUTO) 3.99 MIL/uL (4.06-5.63); RED CELL DISTRIBUTION WIDTH 15.6 % (12.1-16.2); WHITE BLOOD COUNT (AUTO) 7.9 K/uL (3.6-10.2)
[2024-12-25 07:04] LABS: DIFFERENTIAL COMMENT 1
[2024-12-25 07:13] LABS: ALANINE AMINOTRANSFERASE 18 U/L (16-63); ALKALINE PHOSPHATASE 58 U/L (50-136); ASPARTATE AMINOTRANSFERASE 19 U/L (15-37); BILIRUBIN,TOTAL 0.7 mg/dL (0.2-1.0); CALCIUM 8.9 mg/dL (8.5-10.1); CARBON DIOXIDE 33 mmol/L (21-32); CHLORIDE 102 mmol/L (98-107); CREATINE KINASE, TOTAL 79 U/L (39-308); CREATININE 1.8 mg/dL (0.6-1.3); GLUCOSE 140 mg/dL (74-106); MAGNESIUM 2.5 mg/dL (1.8-2.4); PHOSPHOROUS 3.6 mg/dL (2.5-4.9); POTASSIUM 4.2 mmol/L (3.5-5.1); SODIUM SERUM 141 mmol/L (136-145); TOTAL PROTEIN, SERUM 7.2 g/dL (6.4-8.2); UREA NITROGEN, BLOOD 39 mg/dL (7-18)
[2024-12-25] MEDS: HYDROCODONE/APAP 5-325MG TABLET PO PRN (12:43)
[2024-12-25 14:31] LABS: *AMPHETAMINE, URINE NEGATIVE (NEGATIVE); *BARBITURATE, URINE NEGATIVE (NEGATIVE); *BENZODIAZEPINE, URINE NEGATIVE (NEGATIVE); *CANNABINOID, URINE NEGATIVE (NEGATIVE); *COCCAINE, URINE NEGATIVE (NEGATIVE); *OPIATE, URINE NEGATIVE (NEGATIVE); *PHENCYCLIDINE SCREEN,URINE NEGATIVE (NEGATIVE); FENTANYL, URINE NEGATIVE (NEGATIVE)
[2024-12-26] VITALS (8 sets, daily range): BP systolic 117–152; BP diastolic 63–88; TEMP 97.5–99.8; O2SAT 90–98
[2024-12-26] MEDS: QUETIAPINE FUMARATE 25 MG TABLET PO PRN ×2 (01:28→08:55)
[2024-12-26 06:10] LABS: ABG BASE EXCESS 5.2 mmol/L (-2.0-3.0); ABG HCO3 29.5 mmol/L (21.0-28.0); ABG PCO2 42.3 mmHg (35.0-48.0); ABG PH 7.462 (7.350-7.450); ABG PO2 53.8 mmHg (83.0-108.0); ABG SITE RIGHT RADIAL; ABG TOTAL HEMOGLOBIN 12.1 G/dL (13.5-17.5); AaDO2 89.6 mmHg; MetHb 0.3 % (0.0-1.5); O2Hb 84.3 % (94.0-98.0)
[2024-12-26] MEDS: BISACODYL 10 MG SUPP.RECT RC ONE (08:55)
[2024-12-26 13:48] LABS: BASOPHILS % (AUTO) 0.3 % (0.0-2.0); EOSINOPHILS # (AUTO) 0.1 K/uL (0.0-0.7); EOSINOPHILS % (AUTO) 2.1 % (0.0-7.0); HEMATOCRIT 36.3 % (36.7-47.1); HEMOGLOBIN 11.9 g/dL (12.5-16.3); LYMPHOCYTES # (AUTO) 1.2 K/uL (0.8-4.8); LYMPHOCYTES % (AUTO) 18.7 % (20.5-51.5); MEAN CORPUSCULAR HEMOGLOBIN 29.7 uug (23.8-33.4); MEAN CORPUSCULAR HGB CONC 33 g/dL (32.5-36.3); MEAN CORPUSCULAR VOLUME 90.7 fL (73.0-96.2); MONOCYTES # (AUTO) 0.5 K/uL (0.1-1.30); MONOCYTES % (AUTO) 8.3 % (0.0-11.0); NEUTROPHILS # (AUTO) 4.7 K/uL (1.8-8.9); NEUTROPHILS % (AUTO) 70.6 % (38.5-71.5); PLATELET COUNT (AUTO) 188 K/uL (152-348); RED BLOOD CELL COUNT(AUTO) 4.01 MIL/uL (4.06-5.63); RED CELL DISTRIBUTION WIDTH 15.1 % (12.1-16.2); WHITE BLOOD COUNT (AUTO) 6.6 K/uL (3.6-10.2)
[2024-12-26] MEDS: REMEDY ESSENTIAL ZINC PASTE 113 GM TP PRN (13:49)
[2024-12-26 13:50] LABS: DIFFERENTIAL COMMENT 1
[2024-12-26 13:55] LABS: CALCIUM 8.4 mg/dL (8.5-10.1); CARBON DIOXIDE 35 mmol/L (21-32); CHLORIDE 100 mmol/L (98-107); CREATININE 1.7 mg/dL (0.6-1.3); GLUCOSE 149 mg/dL (74-106); POTASSIUM 3.9 mmol/L (3.5-5.1); SODIUM SERUM 139 mmol/L (136-145); UREA NITROGEN, BLOOD 44 mg/dL (7-18)
[2024-12-27] VITALS (7 sets, daily range): BP systolic 107–146; BP diastolic 58–89; TEMP 97.5–98.8; O2SAT 90–99
[2024-12-27] MEDS: LORAZEPAM 2 MG/1 ML VIAL IV ONE (02:28)
[2024-12-27 06:43] LABS: CALCIUM 8.9 mg/dL (8.5-10.1); CARBON DIOXIDE 33 mmol/L (21-32); CHLORIDE 100 mmol/L (98-107); CREATININE 1.6 mg/dL (0.6-1.3); GLUCOSE 141 mg/dL (74-106); POTASSIUM 3.9 mmol/L (3.5-5.1); SODIUM SERUM 139 mmol/L (136-145); UREA NITROGEN, BLOOD 41 mg/dL (7-18)
[2024-12-27 06:47] LABS: BASOPHILS % (AUTO) 0.2 % (0.0-2.0); EOSINOPHILS # (AUTO) 0.1 K/uL (0.0-0.7); EOSINOPHILS % (AUTO) 1.2 % (0.0-7.0); HEMATOCRIT 38.1 % (36.7-47.1); HEMOGLOBIN 12.6 g/dL (12.5-16.3); LYMPHOCYTES # (AUTO) 1.4 K/uL (0.8-4.8); LYMPHOCYTES % (AUTO) 19.9 % (20.5-51.5); MEAN CORPUSCULAR HEMOGLOBIN 29.8 uug (23.8-33.4); MEAN CORPUSCULAR HGB CONC 33 g/dL (32.5-36.3); MEAN CORPUSCULAR VOLUME 90.2 fL (73.0-96.2); MONOCYTES # (AUTO) 0.5 K/uL (0.1-1.30); MONOCYTES % (AUTO) 6.8 % (0.0-11.0); NEUTROPHILS % (AUTO) 71.9 % (38.5-71.5); PLATELET COUNT (AUTO) 204 K/uL (152-348); RED BLOOD CELL COUNT(AUTO) 4.22 MIL/uL (4.06-5.63); RED CELL DISTRIBUTION WIDTH 15.3 % (12.1-16.2)
[2024-12-27 06:48] LABS: DIFFERENTIAL COMMENT 1
[2024-12-27 12:10] LABS: A/G RATIO 0.8 (0.7-1.7); ALBUMIN 2.9 g/dL (2.9-4.4); ALPHA-1-GLOBULIN 0.2 g/dL (0.0-0.4); ALPHA-2-GLOBULIN 0.8 g/dL (0.4-1.0); GAMMA GLOBULIN 1.8 g/dL (0.4-1.8); GLOBULIN, TOTAL 3.8 g/dL (2.2-3.9); M-SPIKE 1.2 g/dL (Not Observed); PROTEIN, TOTAL 6.7 g/dL (6.0-8.5)
[2024-12-27] MEDS: BUMETANIDE 1 MG TABLET PO SCH (16:57)
[2024-12-28] VITALS (7 sets, daily range): BP systolic 107–156; BP diastolic 62–84; TEMP 97.6–98.7; O2SAT 95–99
[2024-12-28 01:06] LABS: PTH, INTACT 18 pg/mL (15-65)
[2024-12-28 07:31] LABS: BASOPHILS % (AUTO) 0.7 % (0.0-2.0); EOSINOPHILS # (AUTO) 0.1 K/uL (0.0-0.7); EOSINOPHILS % (AUTO) 1.8 % (0.0-7.0); HEMATOCRIT 37.7 % (36.7-47.1); HEMOGLOBIN 12.3 g/dL (12.5-16.3); LYMPHOCYTES # (AUTO) 1.3 K/uL (0.8-4.8); LYMPHOCYTES % (AUTO) 20.6 % (20.5-51.5); MEAN CORPUSCULAR HEMOGLOBIN 29.8 uug (23.8-33.4); MEAN CORPUSCULAR HGB CONC 33 g/dL (32.5-36.3); MONOCYTES # (AUTO) 0.5 K/uL (0.1-1.30); MONOCYTES % (AUTO) 7.3 % (0.0-11.0); NEUTROPHILS # (AUTO) 4.4 K/uL (1.8-8.9); NEUTROPHILS % (AUTO) 69.6 % (38.5-71.5); PLATELET COUNT (AUTO) 191 K/uL (152-348); RED BLOOD CELL COUNT(AUTO) 4.14 MIL/uL (4.06-5.63); RED CELL DISTRIBUTION WIDTH 15.5 % (12.1-16.2); WHITE BLOOD COUNT (AUTO) 6.3 K/uL (3.6-10.2)
[2024-12-28 07:33] LABS: DIFFERENTIAL COMMENT 1
[2024-12-28 07:51] LABS: CALCIUM 9.1 mg/dL (8.5-10.1); CARBON DIOXIDE 33 mmol/L (21-32); CHLORIDE 101 mmol/L (98-107); CREATININE 1.4 mg/dL (0.6-1.3); GLUCOSE 130 mg/dL (74-106); MAGNESIUM 2.7 mg/dL (1.8-2.4); PHOSPHOROUS 3.3 mg/dL (2.5-4.9); POTASSIUM 3.7 mmol/L (3.5-5.1); SODIUM SERUM 141 mmol/L (136-145); UREA NITROGEN, BLOOD 40 mg/dL (7-18)
[2024-12-29 00:30] VITALS: BP 138/82; TEMP 97.8; O2SAT 97
[2024-12-29] MEDS: OLANZAPINE 10 MG VIAL IM ONE (02:30)
[2024-12-29 04:45] VITALS: BP 140/83; TEMP 98; O2SAT 97
[2024-12-29 07:40] VITALS: BP 170/94; TEMP 98.4; O2SAT 94
[2024-12-29 08:11] LABS: CALCIUM 9.1 mg/dL (8.5-10.1); CARBON DIOXIDE 34 mmol/L (21-32); CHLORIDE 101 mmol/L (98-107); CREATININE 1.6 mg/dL (0.6-1.3); GLUCOSE 145 mg/dL (74-106); MAGNESIUM 2.7 mg/dL (1.8-2.4); PHOSPHOROUS 3.5 mg/dL (2.5-4.9); POTASSIUM 3.4 mmol/L (3.5-5.1); SODIUM SERUM 142 mmol/L (136-145); UREA NITROGEN, BLOOD 43 mg/dL (7-18)
[2024-12-29 10:47] VITALS: BP 141/79; TEMP 98.4; O2SAT 95
[2024-12-29] MEDS: POTASSIUM CHLORIDE 10 MEQ TAB.PRT.SR PO ONE (11:30)
== END 2024-12-29 15:30 | disposition home or self-care (01) | DRG 280 ==
LOC: ER 03:16 → TELE3 07:57 → MEDSURG3 12-29 10:04
PROVIDERS: ADMIT Student in an Organized Health Care Education/Training Program; ATTEND Nurse Practitioner Acute Care
PROC: 05HB33Z Insertion of Infusion Device into Right Basilic Vein, Percutaneous Approach (ICD-10-PCS; principal; 2024-12-23)
PROC: 5A09357 Assistance with Respiratory Ventilation, Less than 24 Consecutive Hours, Continuous Positive Airway Pressure (ICD-10-PCS; 2024-12-27)
DX: I13.0 Hypertensive heart and chronic kidney disease with heart failure and stage 1 through stage 4 chronic kidney disease, or unspecified chronic kidney disease (principal); G93.41 Metabolic encephalopathy; I21.A1 Myocardial infarction type 2; I50.33 Acute on chronic diastolic (congestive) heart failure; J96.21 Acute and chronic respiratory failure with hypoxia; J96.22 Acute and chronic respiratory failure with hypercapnia; J15.9 Unspecified bacterial pneumonia; E66.2 Morbid (severe) obesity with alveolar hypoventilation; D68.59 Other primary thrombophilia; I48.20 Chronic atrial fibrillation, unspecified; N18.4 Chronic kidney disease, stage 4 (severe); N17.9 Acute kidney failure, unspecified; L03.116 Cellulitis of left lower limb; I67.89 Other cerebrovascular disease; Z68.38 Body mass index [BMI] 38.0-38.9, adult; L89.156 Pressure-induced deep tissue damage of sacral region; L89.891 Pressure ulcer of other site, stage 1; E11.42 Type 2 diabetes mellitus with diabetic polyneuropathy; L85.3 Xerosis cutis; I08.3 Combined rheumatic disorders of mitral, aortic and tricuspid valves; N40.0 Benign prostatic hyperplasia without lower urinary tract symptoms; I42.9 Cardiomyopathy, unspecified; I25.10 Atherosclerotic heart disease of native coronary artery without angina pectoris; I27.20 Pulmonary hypertension, unspecified; G30.9 Alzheimer's disease, unspecified; R60.0 Localized edema; I25.2 Old myocardial infarction; E11.22 Type 2 diabetes mellitus with diabetic chronic kidney disease; E11.65 Type 2 diabetes mellitus with hyperglycemia; D64.9 Anemia, unspecified; E78.5 Hyperlipidemia, unspecified; Z74.09 Other reduced mobility; Z95.810 Presence of automatic (implantable) cardiac defibrillator; Z79.899 Other long term (current) drug therapy; Z79.01 Long term (current) use of anticoagulants; Z79.84 Long term (current) use of oral hypoglycemic drugs
CPT/HCPCS: 36415; 36600; 70450; 71045; 83735; 83970; 84100; 84155; 84165; 84300; 84443; 84484; 85025; 87040; 93307; 94640; 94660; 94760; A4606; A4663; A6213; G0378; J0692; J1650; J1815; J1938; J2060; J2358; J3590